=== PATIENT | female | born 1975 | race Caucasian/White ===

== ENCOUNTER 2022-10-29 12:43 | Outpatient (CLI) | payer MEDICARE, OTHER | END 2022-10-29 12:44 | disposition home or self-care (01) | LOC: CSHCT 12:43 | PROVIDERS: ATTEND Urology | DX: N31.9 Neuromuscular dysfunction of bladder, unspecified (principal); N31.1 Reflex neuropathic bladder, not elsewhere classified; Z87.448 Personal history of other diseases of urinary system; N20.0 Calculus of kidney; Z43.5 Encounter for attention to cystostomy; N26.1 Atrophy of kidney (terminal); N28.81 Hypertrophy of kidney; Z96.0 Presence of urogenital implants | CPT/HCPCS: 74176 ==

== ENCOUNTER 2023-08-07 13:00 | Outpatient (CLI) | payer MEDICARE, MEDICAID | END 2023-08-07 13:01 | disposition home or self-care (01) | LOC: CSHULT 13:00 | PROVIDERS: ATTEND Urology | DX: N31.9 Neuromuscular dysfunction of bladder, unspecified (principal); N31.1 Reflex neuropathic bladder, not elsewhere classified; Z87.448 Personal history of other diseases of urinary system; N20.0 Calculus of kidney | CPT/HCPCS: 76770 ==